=== PATIENT | female | born 1995 | race Two or more races ===

== ENCOUNTER 2019-03-06 19:23 | Emergency (ER) | payer SELFPAY ==
[2019-03-06] MEDS ORDERED: DEXAMETHASONE LIQUID 0.5 MG/5 ML 240 ML BULK BOTTLE PO ONE (19:42)
[2019-03-06] MEDS ORDERED: PENICILLIN G BENZATHINE 1,200,000 UNIT/2 ML PFS IM ONE ×2 (19:42→20:04)
--- NOTE | 2019-03-06 19:42 | PDOC ---
Rapid Medical Evaluation Medical Evaluation: Allergies Allergy/AdvReac Type Severity Reaction Status Date / Time ibuprofen [From Motrin] Allergy Severe Hives Verified 05/12/16 00:03 03/06/19 19:38 I have performed a brief in-person evaluation of this patient. The patient presents with a chief complaint of: sore throat starting today Pertinent physical exam findings: OP erythematous with exudate I have ordered the following: decadron, bicillin The patient will proceed to the ED for further evaluation. Discharge Disposition - Diagnosis Pharyngitis - Referrals - Patient Instructions - Post Discharge Activity
[2019-03-06 19:47] VITALS: BP 138/86; PULSE 108; TEMP 100.8; BMI 38.2
[2019-03-06] MEDS ORDERED: DEXAMETHASONE SOD PHOSPHATE 10 MG/1 ML VIAL ONE (20:05)
--- NOTE | 2019-03-06 20:14 | PDOC ---
History of Present Illness - General Chief Complaint: Sore Throat Stated Complaint: THROAT PAIN Time Seen by Provider: 03/06/19 19:40 - History of Present Illness Initial Comments: 03/06/19 20:12 23 y/o female with sore throat 1d Past History - Past Medical History Allergies/Adverse Reactions: Allergies Allergy/AdvReac Type Severity Reaction Status Date / Time ibuprofen [From Motrin] Allergy Severe Hives Verified 05/12/16 00:03 Home Medications: Ambulatory Orders NK [No Known Home Medication] 03/20/18 Asthma: Yes Cancer: No Cardiac Disorders: No COPD: No Diabetes: No HTN: No Seizures: No Thyroid Disease: No - Reproductive History (#): 2 Para: 1 - Immunization History Immunization Up to Date: Yes - Suicide/Smoking/Psychosocial Hx Smoking Status: No Smoking History: Never smoked Have you smoked in the past 12 months: No Number of Cigarettes Smoked Daily: 0 Cigars Per Day: 0 Information on smoking cessation initiated: No Hx Alcohol Use: No Drug/Substance Use Hx: No Substance Use Type: None Hx Substance Use Treatment: No Review of Systems - Review of Systems Constitutional: Yes: Fever HEENTM: Yes: Throat Pain, Difficulty Swallowing *Physical Exam - Vital Signs Last Vital Signs Temp Pulse Resp BP Pulse Ox 100.8 F H 108 H 18 138/86 100 03/06/19 19:41 03/06/19 19:41 03/06/19 19:41 03/06/19 19:41 03/06/19 19:41 - Physical Exam Comments: 03/06/19 20:13 HEAD: NC/AT EYES: Conjuntiva clear Ears: Canals and TM's normal NOSE: No d/c THROAT: Moist mucous membrances, oral pharanx erythemic with exudate, uvula midline NECK: Supple without adenopathy CARDIAC: S1 S2 LUNGS: CTA Full and Equal breath sounds ABDOMEN: Soft NT ND MS: Full ROM in all joints without edema NEUROLOGIC: No gross sensory or motor deficits, NVID SKIN: Normal color and temperature no lesions or rashes ED Treatment Course - Medications Given in the ED: ED Medications Discontinued Medications Generic Name Dose Route Start Last Admin Trade Name Freq PRN Reason Stop Dose Admin Dexamethasone 10 mg 03/06/19 19:42 03/06/19 20:10 Decadron Liquid - PO 07/30/19 19:43 10 mg ONCE ONE Administration Penicillin G Benzathine 1,200,000 unit 03/06/19 19:42 03/06/19 20:10 Bicillin L-A - IM 03/06/19 19:43 1,200,000 unit ONCE ONE Administration Medical Decision Making - Medical Decision Making 03/06/19 20:13 Appropriare medication ordered from triage *DC/Admit/Observation/Transfer Diagnosis at time of Disposition: Pharyngitis - Discharge Dispostion Disposition: HOME Condition at time of disposition: Stable Decision to Admit order: No - Referrals - Patient Instructions Printed Discharge Instructions: Strep Throat, DI for Strep Throat Additional Instructions: warm salt water gargles follow-up with your primary care physician in one to do days for further evaluation and treatment options and return to the emergency room should symptoms worsen. - Post Discharge Activity
== END 2019-03-06 20:31 | disposition home or self-care (01) ==
LOC: JERFT 19:23
DX: J02.9 Acute pharyngitis, unspecified (principal)
CPT/HCPCS: 99281-25

== ENCOUNTER 2020-02-22 12:32 | Emergency (ER) | payer OTHER ==
[2020-02-22] MEDS ORDERED: ACETAMINOPHEN 500 MG TABLET (FP) PO ONE (12:40)
--- NOTE | 2020-02-22 12:40 | PDOC ---
Rapid Medical Evaluation Chief Complaint: Pain Time Seen by Provider: 02/22/20 12:39 Medical Evaluation: Allergies Allergy/AdvReac Type Severity Reaction Status Date / Time ibuprofen [From Motrin] Allergy Severe Hives Verified 05/12/16 00:03 02/22/20 12:39 I have performed a brief in-person evaluation of this patient. CC: toothache, back pain, knees buckling PE: No focal findings Orders: Tylenol Patient will proceed to ED for further evaluation. Discharge Disposition - Diagnosis Toothache - Referrals - Patient Instructions - Post Discharge Activity
[2020-02-22 12:44] VITALS: BP 137/83; PULSE 90; TEMP 98.5; BMI 36.6
[2020-02-22] MEDS ORDERED: ACETAMINOPHEN 325 MG TABLET (FP) ONE (13:08)
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
== END 2020-02-22 14:12 | disposition home or self-care (01) ==
LOC: JERFT 12:32
DX: K08.89 Other specified disorders of teeth and supporting structures (principal)
CPT/HCPCS: 99283-25

== ENCOUNTER 2022-02-19 21:53 | Emergency (ER) | payer OTHER ==
[2022-02-19 22:37] VITALS: BP 111/68; PULSE 97; TEMP 98.2; BMI 41.8
[2022-02-19] MEDS ORDERED: ACETAMINOPHEN 500 MG TABLET (FP) PO ONE (22:47)
[2022-02-19] MEDS ORDERED: METHOCARBAMOL 500 MG TABLET PO ONE (22:47)
[2022-02-19] MEDS ORDERED: METHOCARBAMOL 500 MG TABLET ONE (22:48)
[2022-02-19] MEDS ORDERED: ACETAMINOPHEN 325 MG TABLET (FP) ONE (22:48)
== END 2022-02-19 23:06 | disposition home or self-care (01) ==
LOC: JER 21:53
DX: M54.2 Cervicalgia (principal); M54.50 Low back pain, unspecified; V43.52XA Car driver injured in collision with other type car in traffic accident, initial encounter
CPT/HCPCS: 99283-25